=== PATIENT | male | born 1970 | race Caucasian/White ===

== ENCOUNTER 2016-12-17 19:15 | Emergency (ER) | payer BC ==
[~2016-12-17] VITALS: Ht 165.1 cm; Wt 83.1 kg
[~2016-12-17 19:15] MED LIST: EFFEXOR37.5 MG PO
[2016-12-17 19:51] LABS: HEMATOCRIT 43.2 % (38.0-50.0); MCH 30.3 PG (29.0-34.0); MCV 86.6 FL (86-99); MEAN PLAT.VOLUME 10.2 uM^3 (9.0-12.4); PLATELET COUNT 216 K/uL (156-360); RBC DIS.WIDTH-CV 11.7 % (11.8-14.6); RBC DIS.WIDTH-SD 37.2 % (39-53); RED BLOOD COUNT 4.99 M/uL (4.00-5.50); WHITE BLOOD COUNT 8.3 K/uL (4.1-10.2)
[2016-12-17 19:53] LABS: ADD MIUA? YES; BILIRUBIN SMALL; BLOOD LARGE; COLOR YELLOW ((YELLOW)); GLUCOSE (STRIP) NEGATIVE; KETONES NEGATIVE; LEUKOCYTES NEGATIVE; NITRITE NEGATIVE; PROTEIN (STRIP) 100; UROBILINOGEN 0.2 MG/DL (0.2-1.0)
[2016-12-17 19:59] LABS: CHLORIDE 111 mEq/L (99-109); POTASSIUM 3.8 mEq/L (3.7-5.4); SODIUM 144 mEq/L (136-147)
[2016-12-17 20:01] LABS: GLUCOSE 119 mg/dL (70-99)
[2016-12-17 20:02] LABS: ANION GAP 10 MEQ/L (2-14)
[2016-12-17 20:03] LABS: TOTAL BILIRUBIN 0.5 mg/dL (0.0-1.0)
[2016-12-17 20:05] LABS: ALKALINE PHOSPHATASE 57 IU/L (3-129); GFR ESTIMATE (CALCULATED) 54 mL/min/
[2016-12-17 20:06] LABS: UREA NITROGEN (BUN) 19 mg/dL (9-23)
[2016-12-17 20:06] LABS: BACTERIA NONE SEEN /HPF; CASTS NONE SEEN /LPF; CRYSTALS NONE SEEN; EPITHELIAL CELLS NONE SEEN /HPF; MUCUS 1+ /LPF; RED BLOOD CELLS TNTC /HPF (0-5); UCUL ADDED? YES; WHITE BLOOD CELLS 0-5 /HPF (0-5)
[2016-12-17 20:39] LABS: C-REACTIVE PROTEIN < 1.0 MG/L (0-10); SAMPLE HEMOLYSIS CHECK 0; SAMPLE ICTERIC CHECK 0; SAMPLE LIPEMIA CHECK 0
[2016-12-17] MEDS ORDERED: MOTRIN800 MG PO (21:28)
[2016-12-17] MEDS ORDERED: FLOMAX0.4 MG PO (21:28)
[2016-12-17] MEDS ORDERED: ZOFRAN ODT4 MG PO (21:29)
[2016-12-17] MEDS ORDERED: PERCOCET 5/31 TABLET PO (21:29)
[2016-12-17 22:10] VITALS: BP 108/65
== END 2016-12-18 03:40 | disposition home or self-care (01) ==
LOC: EME 19:15
PROVIDERS: Nurse Practitioner Family
DX: N20.0 Calculus of kidney (principal); R31.9 Hematuria, unspecified; R11.2 Nausea with vomiting, unspecified; J45.909 Unspecified asthma, uncomplicated; Z87.442 Personal history of urinary calculi
CPT/HCPCS: 74176; 80053; 81003; 85027; 86140; 87086; 99281; 99285; J1885; J2405; J2765; J3010